=== PATIENT | female | born 1960 | race Caucasian/White ===

== ENCOUNTER → 2016-09-16 | Outpatient (CLI) | payer BC ==
--- NOTE | 2016-09-17 07:43 | BD ---
EXAMINATION TYPE: MG DEXA axial skeleton. DATE OF EXAM: 09/16/2016 4:14 PM COMPARISON: 03.29.2014 CLINICAL HISTORY: M89.9 DISORDER OF BONE Height: 68.5 Weight: 167 FRAX RISK QUESTIONS: Alcohol (3 or more units per day): NO Family History (Parent hip fracture): YES Glucocorticoids (More than 3mos): YES, FOR ASTHMA (Ex: prednisone, prednisolone, methylprednisolone, dexamethasone, and hydrocortisone). History of Fracture in Adulthood: NO Secondary Osteoporosis: NO 1. Type 1 Diabetes: NO 2. Hyperthyroidism: NO 3. Menopause before 45: HYST AT 44 4. Malnutrition: NO 5. Chronic liver disease: NO Rheumatoid Arthritis: NO Current Tobacco Use: NO RISK FACTORS HISTORY OF: Family History of Osteoporosis: YES, HER MOTHER, WITH BROKEN HIP Drink Alcohol: RARE Active: YES Diet low in dairy products/other sources of calcium: NO Postmenopausal woman: HYST AT 44 YRS, Adrenal Insufficiency: NO MEDICATIONS: Prednisone or other steroids: ASTHMA, VENTOLIN HFA DAILY, SINGULAIR How Lon YRS Thyroid Medications: STOPPED 3 YRS AGO Additional Medications: VIT D3, THRIVE, OTC VITAMINS AND MINERALS Additional History: ASTHMA, OSTEOARTHRITIS EXAM MEASUREMENTS: Bone mineral densitometry was performed using the [employer] System. Bone mineral density as measured about the Lumbar spine is: ----- L1-L4(G/cm2): 1.185 T Score Values are as follows: ----- L1: -0.4 ----- L2: 0.3 ----- L3: 0.2 ----- L4: -0.1 ----- L1-L4: 0.0 Bone mineral density has: Increased 1.4% since study of: 03.29.2014 Bone mineral density about the R hip (g/cm2): 0.899 Bone mineral density about the L hip (g/cm2): 0.887 T Score values are as follows: -----R Neck: -1.0 -----L Neck: -1.1 -----R Intertrochanter: -1.3 -----L Intertrochanter: -1.1 Bone mineral density has: Decreased -4.4% since study of: 03.29.2014 FRAX %'S: 12.7% FOR A MAJOR OSTEOPOROTIC FX AND 0.4% FOR A HIP FX......PROBABILITY OF FX IN 10 YRS TIME IMPRESSION: Osteopenia (T Score between -2.5 and -1 as noted by T score values There is slightly increased risk of fracture and the patient may be considered for treatment. Re-Screen 1-2 years. LEFT HIP MAJOR OSTEOPOROTIC FRACTURE RISK: 12.7% HIP FRACTURE RISK: 0.4% NOTE: T-SCORE=SD OF THE YOUNG ADULT MEAN.
--- NOTE | 2016-09-17 09:59 | MM ---
Reason for exam: screening (asymptomatic). Last mammogram was performed 2 years and 6 months ago. History: Patient history of other cancer. Retro-pectoral implants in both breasts, March 02, 2011. Took hormonal contraceptives for 5 years. Physical Findings: A clinical breast exam by your physician is recommended on an annual basis and results should be correlated with mammographic findings. MG Screening Mammo Implant/CAD Bilateral CC, MLO, and ID view(s) were taken. Prior study comparison: March 29, 2014, bilateral MG diagnostic mammo w CAD ENA. May 29, 2012, CAD bilateral diagnostic mammogram. There are scattered fibroglandular densities. No significant changes when compared with prior studies. ASSESSMENT: Benign, BI-RAD 2 RECOMMENDATION: Routine screening mammogram of both breasts in 1 year.
== END | disposition home or self-care (01) ==
LOC: RADMAMWWP 15:20
PROVIDERS: ATTEND Obstetrics & Gynecology
DX: Z12.31 Encounter for screening mammogram for malignant neoplasm of breast (principal); M85.80 Other specified disorders of bone density and structure, unspecified site; M89.9 Disorder of bone, unspecified
CPT/HCPCS: 77080; G0202

== ENCOUNTER 2016-12-10 10:48 | Day surgery (SDC) | payer BC ==
[2016-12-08 17:53] VITALS: BMI 23.2
[~2016-12-10 10:48] MED LIST: LACTATED RINGERS 1,000 ML IV SCH; LIDOCAINE 1% 20 ML VIAL (10MG/ML) FOR IV START INTRADERMA PRN
[2016-12-10 11:12] VITALS: RESP 18; TEMP 98
[2016-12-10] MEDS ORDERED: LACTATED RINGERS 1,000 ML IV ONE (11:12)
[2016-12-10] MEDS ORDERED: MIDAZOLAM 2 MG/2 ML VIAL ONE (11:19)
[2016-12-10] MEDS ORDERED: fentaNYL (PF) 50 MCG/ML 2 ML AMP ONE (11:19)
[2016-12-10] MEDS ORDERED: PROPOFOL 10 MG/ML 20 ML VIAL IV ONE (11:19)
[2016-12-10] MEDS ORDERED: ONDANSETRON 4 MG/2 ML VIAL ONE (11:19)
--- NOTE | 2016-12-10 11:23 | P.GSHP ---
History of Present Illness H&P Date: 12/10/16 Chief Complaint: Colon cancer screening Patient here today for colonoscopy. Last one was about 15 years ago. No bowel related complaints. No family history of colon cancer. Past Medical History Past Medical History: Asthma, Cancer, GERD/Reflux, Osteoarthritis (OA), Pneumonia, Thyroid Disorder Additional Past Medical History / Comment(s): hx pneumonia in past, hyperthyroid -no rx, hx anemia, skin cancer History of Any Multi-Drug Resistant Organisms: None Reported Past Surgical History: Hysterectomy, Orthopedic Surgery, Tonsillectomy Additional Past Surgical History / Comment(s): varicose vein rt leg, cancer removed from rt upper chest, left knee arthroscopy, amanda foot surgery Past Anesthesia/Blood Transfusion Reactions: No Reported Reaction Past Psychological History: Depression Smoking Status: Never smoker Past Alcohol Use History: Occasional Past Drug Use History: None Reported - Past Family History Mother Family Medical History: Cancer Additional Family Medical History / Comment(s): lung Medications and Allergies Home Medications Medication Instructions Recorded Confirmed Type Acetaminophen [Tylenol Extra 1,000 mg PO BID 12/08/16 12/08/16 History Strength] Albuterol Sulfate [Ventolin Hfa] 2 puff INHALATION DIRECTED PRN 12/08/1601/17 History Calcium Tab 1,000 mg PO DAILY 12/08/16 12/08/16 History Cholecalciferol [Vitamin D3] 2,000 unit PO DAILY 12/08/16 12/08/16 History Esomeprazole Magnesium [NexIUM] 40 mg PO AC-SUPPER 12/08/16 12/08/16 History Magnesium Oxide [Magnesium] 500 mg PO DAILY 12/08/16 12/08/16 History Montelukast [Singulair] 10 mg PO HS 12/08/16 12/10/16 History [place]-3 Fatty Acids/Fish Oil [Fish 1 each PO DAILY 12/08/16 12/08/16 History Oil 1,000 mg Capsule] Triple Flex 1 tab PO DAILY 12/08/16 12/08/16 History Turmeric Root Extract [Turmeric] 500 mg PO DAILY 12/08/16 12/08/16 History Allergies Allergy/AdvReac Type Severity Reaction Status Date / Time erythromycin base Allergy Nausea Verified 12/08/16 17:42 Surgical - Exam Vital Signs Temp Pulse Resp BP Pulse Ox 98.0 F 62 18 110/82 98 12/10/16 11:11 12/10/16 11:11 12/10/16 11:11 12/10/16 11:11 12/10/16 11:11 Physical exam: General: Well-developed, well-nourished HEENT: Normocephalic, sclerae nonicteric Abdomen: Nontender, nondistended Extremities: No edema Neuro: Alert and oriented Assessment and Plan (1) Colon cancer screening Narrative/Plan: Will proceed with colonoscopy at this time. Status: Acute
--- NOTE | 2016-12-10 11:37 | P.PCN ---
Date of Procedure: 12/10/16 Preoperative Diagnosis: Postoperative Diagnosis: Procedure(s) Performed: PREOPERATIVE DIAGNOSIS: Screening POSTOPERATIVE DIAGNOSIS: Normal exam PROCEDURE: Colonoscopy ANESTHESIA: MAC SURGEON: Brock Villarreal M.D. SPECIMENS: None ENDOSCOPIC PROCEDURE: The patient was placed on the endoscopy table in the left decubitus position. The Olympus colonoscope was inserted into the anus and passed under direct visualization to the base of the cecum. The appendiceal orifice was visualized. From that point the scope was slowly withdrawn inspecting all surfaces carefully. There were no neoplastic inflammatory or polypoid lesions throughout the cecum, ascending, transverse, descending, sigmoid and rectum. There was known diverticulosis noted throughout the colon. Digital rectal examination was normal. The patient was taken to the recovery room in stable condition per anesthesia guidelines. RECOMMENDATIONS: Increase fiber. Follow-up colonoscopy in 10 years. Implants: Indications for Procedure: Operative Findings: Description of Procedure:
[2016-12-10 12:06] VITALS: PULSE 56
[2016-12-10 12:22] VITALS: BP 104/69
== END 2016-12-10 12:30 | disposition home or self-care (01) ==
LOC: ORWHC2ENDO 10:48
PROVIDERS: ATTEND Surgery
DX: Z12.11 Encounter for screening for malignant neoplasm of colon (principal); K57.30 Diverticulosis of large intestine without perforation or abscess without bleeding; J45.909 Unspecified asthma, uncomplicated; K21.9 Gastro-esophageal reflux disease without esophagitis; M19.90 Unspecified osteoarthritis, unspecified site; E05.90 Thyrotoxicosis, unspecified without thyrotoxic crisis or storm; F32.9 Major depressive disorder, single episode, unspecified; Z79.899 Other long term (current) drug therapy; Z88.1 Allergy status to other antibiotic agents
CPT/HCPCS: J2250; J2405; J3010; J2704; G0121

== ENCOUNTER 2017-11-05 11:13 | Emergency (ER) | payer BC, OTHER ==
--- NOTE | 2017-11-05 11:58 | ED ---
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 She states she was on the floors apparently tripped over a cord falling down the left side hitting her face and cheek. She does make some swelling some pain locally to this area. Patient states she does not believe that she lost consciousness. Patient states that she does have some neck pain and some mild back pain. Patient does admit to a headache that is beginning. Patient denies any other complaints or symptoms at this time. Patient denies any recent fever, chills, shortness of breath, chest pain, abdominal pain, nausea or vomiting, numbness or tingling, visual changes, or any other complaints. - Related Data Home Medications Medication Instructions Recorded Confirmed Acetaminophen [Tylenol Extra 1,000 mg PO BID 12/08/16 12/08/16 Strength] Albuterol Sulfate [Ventolin Hfa] 2 puff INHALATION DIRECTED PRN 12/08/1601/17 Calcium Tab 1,000 mg PO DAILY 12/08/16 12/08/16 Cholecalciferol [Vitamin D3] 2,000 unit PO DAILY 12/08/16 12/08/16 Esomeprazole Magnesium [NexIUM] 40 mg PO AC-SUPPER 12/08/16 12/08/16 Magnesium Oxide [Magnesium] 500 mg PO DAILY 12/08/16 12/08/16 Montelukast [Singulair] 10 mg PO HS 12/08/16 12/10/16 [place]-3 Fatty Acids/Fish Oil [Fish 1 each PO DAILY 12/08/16 12/08/16 Oil 1,000 mg Capsule] Triple Flex 1 tab PO DAILY 12/08/16 12/08/16 Turmeric Root Extract [Turmeric] 500 mg PO DAILY 12/08/16 12/08/16 Allergies Allergy/AdvReac Type Severity Reaction Status Date / Time erythromycin base Allergy Nausea Verified 11/05/17 11:25 prednisone Allergy Unknown Verified 11/05/17 11:25 Review of Systems ROS Statement: Those systems with pertinent positive or pertinent negative responses have been documented in the HPI. ROS Other: All systems not noted in ROS Statement are negative. Past Medical History Past Medical History: Asthma, Cancer, GERD/Reflux, Osteoarthritis (OA), Pneumonia, Thyroid Disorder Additional Past Medical History / Comment(s): hyperthyroid-no rx, skin cancer History of Any Multi-Drug Resistant Organisms: None Reported Past Surgical History: Hysterectomy, Orthopedic Surgery, Tonsillectomy Additional Past Surgical History / Comment(s): varicose vein rt leg, cancer removed from rt upper chest, left knee arthroscopy, amanda foot surgery Past Anesthesia/Blood Transfusion Reactions: No Reported Reaction Past Psychological History: Depression Smoking Status: Never smoker Past Alcohol Use History: Occasional Past Drug Use History: None Reported - Past Family History Mother Family Medical History: Cancer Additional Family Medical History / Comment(s): lung General Exam - General Exam Comments Initial Comments: General: The patient is awake and alert, in no distress, and does not appear acutely ill. Eye: Pupils are equal, round and reactive to light, extra-ocular movements are intact. No nystagmus. There is normal conjunctiva bilaterally. No signs of icterus. Ears, nose, mouth and throat: There are moist mucous membranes and no oral lesions. Neck: The neck is supple, there is no tenderness or JVD. Cardiovascular: There is a regular rate and rhythm. No murmur, rub or gallop is appreciated. Respiratory: Lungs are clear to auscultation, respirations are non-labored, breath sounds are equal. No wheezes, stridor, rales, or rhonchi. Musculoskeletal: Normal ROM, no tenderness midline or cervical spine. Mild tenderness to the right side of the lower cervical spine. No step-off or deformity. Strength 5/5. Sensation intact. Pulses equal bilaterally 2+. Neurological: A&O x 3. CN II-XII intact, There are no obvious motor or sensory deficits. Coordination appears grossly intact. Speech is normal. Skin: Patient also some mild swelling to left cheek area. Tender over the zygomatic arch Psychiatric: Cooperative, appropriate mood & affect, normal judgment. Limitations: no limitations Course Vital Signs 11/05/17 11:22 Temperature 97.7 F Pulse Rate 75 Respiratory 18 Rate Blood Pressure 140/73 O2 Sat by Pulse 98 Oximetry Medical Decision Making - Medical Decision Making Patient's CT of the head, neck, facial bones reviewed and are negative for any acute abnormalities. Results were discussed with the patient. At this time patient doing well. Denies any complaints. Will be discharged home. Advised to continue IV Profen for pain. Disposition Clinical Impression: Fall, Facial contusion Disposition: HOME SELF-CARE Condition: Good Instructions: Concussion (ED) Additional Instructions: Please use medication as discussed. Please follow-up with family doctor in the next 2 days of symptoms have not improved. Please return to emergency room if the symptoms increase or worsen or for any other concerns. Is patient prescribed a controlled substance at d/c from ED?: No Referrals: Didi Alas MD [Primary Care Provider] - 1-2 days Time of Disposition: 13:02
--- NOTE | 2017-11-05 12:42 | CT ---
EXAMINATION TYPE: CT facial bones wo con DATE OF EXAM: 11/05/2017 COMPARISON: NONE HISTORY: Tripped and fell, Lt cheek laceration CT DLP: 1830.3 (brain, cervical, facial) mGycm Automated exposure control for dose reduction was used. TECHNIQUE: There is some soft tissue edema or bruising involving the left cheek. The zygomatic arches are intact. The pterygoid plates are intact. The monreal of the orbits and maxilla ry sinuses are intact. No nasal fracture is seen. Visualized portions of the paranasal sinuses and mastoids are clear. Visualized portions of the brain are normal. IMPRESSION: 1. SOFT TISSUE EDEMA OR BRUISING. 2. NO ACUTE OSSEOUS LESION.
--- NOTE | 2017-11-05 12:46 | CT ---
EXAMINATION TYPE: CT brain cspine wo con DATE OF EXAM: 11/05/2017 COMPARISON: NONE HISTORY: tripped and fell, Lt cheek laceration CT DLP: 1830.3 (brain, cervical, facial) mGycm Automated exposure control for dose reduction was used. TECHNIQUE: CT scan of the head and cervical spine are performed without contrast. FINDINGS: BRAIN: Central structures are midline. There is no evidence of hydrocephalus. No acute focal lesion, mass effect or midline shift is seen a do not see evidence of intracranial blood. Visualized portions of the paranasal sinuses and mastoids are clear. The bony calvarium is intact. IMPRESSION: NORMAL CT SCAN OF THE BRAIN. CERVICAL SPINE: There are mild emphysematous changes within the lungs. Prevertebral soft tissues are unremarkable. There is a minimal retrograde listhesis of C5 on C6. Alignment is otherwise maintained. Atlantoaxial relationships are normal. There is degenerative disc disease, hypertrophic spondylosis and uncovertebral joint disease at C5-6. There is also mild degenerative change present at C4-5. No definite protrusion is seen. No fractures identified. IMPRESSION: 1. NO ACUTE OSSEOUS LESION. 2. MILD DEGENERATIVE CHANGE.
[2017-11-05 13:17] VITALS: BP 120/71; PULSE 73; RESP 16; TEMP 97
== END 2017-11-05 13:16 | disposition home or self-care (01) ==
LOC: EC 11:13
DX: S00.83XA Contusion of other part of head, initial encounter (principal); J45.909 Unspecified asthma, uncomplicated; K21.9 Gastro-esophageal reflux disease without esophagitis; M19.90 Unspecified osteoarthritis, unspecified site; Z85.828 Personal history of other malignant neoplasm of skin; Z79.899 Other long term (current) drug therapy; Z88.1 Allergy status to other antibiotic agents; Z88.8 Allergy status to other drugs, medicaments and biological substances; W01.10XA Fall on same level from slipping, tripping and stumbling with subsequent striking against unspecified object, initial encounter; Y99.0 Civilian activity done for income or pay
CPT/HCPCS: 70450; 70486; 72125; 99283

== ENCOUNTER → 2017-11-10 | Outpatient (CLI) | payer BC ==
--- NOTE | 2017-11-10 09:37 | XR ---
EXAMINATION TYPE: XR knee standing AP BILAT DATE OF EXAM: 11/10/2017 CLINICAL HISTORY: DJD bilateral knees TECHNIQUE: Weightbearing 2 views of the bilateral knees are obtained. COMPARISON: None. FINDINGS: There is no acute fracture/dislocation evident in either knee. There is advanced joint spa ce loss with mild to moderate spurring right patellofemoral compartment. Increased soft tissue densit y at this level is consistent with moderate size suprapatellar joint effusion. There is more moderate joint space loss and spurring left patellofemoral compartment. There is mild to moderate spurring and joint space loss medial tibiofemoral compartments bilaterally with symmetric appearance. There is mild joint space loss and spurring lateral tibiofemoral compartme nts bilaterally. Surgical clips from venous harvesting procedure medially in the right knee are noted . IMPRESSION: There are degenerative changes in both knees, greatest right patellofemoral compartment.
--- NOTE | 2017-11-11 10:05 | MR ---
EXAMINATION TYPE: MR knee LT wo con DATE OF EXAM: 11/10/2017 COMPARISON: X-ray 11/10/2017 HISTORY: Bilateral Torn Meniscus TECHNIQUE: Multiplanar, multisequence imaging of the left knee is performed without IV contrast. FINDINGS: MEDIAL MENISCUS: Linear signal involving the posterior horn and body of the medial meniscus tear. LATERAL MENISCUS: Linear signal involving the posterior horn and body of the lateral meniscus compati ble with simple linear tear CRUCIATE LIGAMENTS: The anterior and posterior cruciate ligaments are intact and unremarkable. COLLATERAL LIGAMENTS: The medial collateral ligament and lateral collateral ligament complex are inta ct and unremarkable. EXTENSOR MECHANISM: Visualized quadriceps and patellar tendons are intact. EFFUSION: Trace amount of fluid in the suprapatellar bursa. Rounded area of intermediate signal may represent a small loose body. POPLITEAL CYST: No popliteal/go cyst. TRICOMPARTMENT SPACES: There is a narrowing of the medial compartment of the knee joint and marked na rrowing the patellofemoral joint with hypertrophic spurs involving both compartments. Complete loss o f cartilage involving the lateral patellar facet is noted. Small loose body within the suprapatellar bursa is noted. There is grade III chondromalacia involving the lateral femoral articular cartilage. BONE MARROW SIGNAL: Post arthritic and reactive marrow changes involving the patella, femur and tibia . Benign cystic changes involving the head of the fibula. IMPRESSION: 1. Significant arthropathy likely in the basis of osteoarthritis with chondromalacia as discussed abo ve. 2. Simple linear tears involving the posterior horn and body of the medial and lateral meniscus.
--- NOTE | 2017-11-11 10:39 | MR ---
EXAMINATION TYPE: MR knee RT wo con DATE OF EXAM: 11/10/2017 COMPARISON: NONE HISTORY: Bilateral Torn Meniscus TECHNIQUE: Multiplanar, multisequence imaging of the right knee is performed without IV contrast. FINDINGS: MEDIAL MENISCUS: Linear signal in the posterior horn of the medial meniscus noted compatible with tea r.. LATERAL MENISCUS: Signal within the posterior horn the lateral meniscus is most typical mucoid degene ration. CRUCIATE LIGAMENTS: The anterior and posterior cruciate ligaments are intact and unremarkable. COLLATERAL LIGAMENTS: The medial collateral ligament and lateral collateral ligament complex are inta ct and unremarkable. EXTENSOR MECHANISM: Visualized quadriceps and patellar tendons are intact. EFFUSION: Small amount of fluid in the suprapatellar bursa. POPLITEAL CYST: No popliteal/go cyst. TRICOMPARTMENT SPACES: There is narrowing of the medial compartment of the knee joint in severe narro wing of the patellofemoral joint. Hypertrophic changes are noted. Grade II chondromalacia involving the articular medial and lateral femoral cartilage and complete los s of the lateral patellar facet cartilage secondary to severe arthropathy. BONE MARROW SIGNAL: Marrow signal within the patella anterior femur likely reactive secondary to post arthritic changes. Benign cystic changes in the posterior central tibia. OTHER: Soft tissue varicosities noted. IMPRESSION: 1. Severe arthritic change. Osteoarthritis favored over depositional arthropathy with most marked fin dings involving the patellofemoral joint. Chondromalacia as discussed above. 2. Simple linear tear posterior horn medial meniscus 3. Nonspecific signal posterior horn lateral meniscus. Mucoid degeneration favored. 4. Correlate for medial plica syndrome.
== END | disposition home or self-care (01) ==
LOC: RADMRIMAIN 06:08
DX: R93.7 Abnormal findings on diagnostic imaging of other parts of musculoskeletal system (principal); M17.0 Bilateral primary osteoarthritis of knee; S83.206A Unspecified tear of unspecified meniscus, current injury, right knee, initial encounter; S83.207A Unspecified tear of unspecified meniscus, current injury, left knee, initial encounter
CPT/HCPCS: 73565

== ENCOUNTER → 2019-05-09 | Outpatient (CLI) | payer BC ==
--- NOTE | 2019-05-09 14:39 | BD ---
EXAMINATION TYPE: Axial Bone Density DATE OF EXAM: 05/09/2019 COMPARISON: 09/16/2016 CLINICAL HISTORY: M 89.9, N 95.1 Height: Weight: 176.1 FRAX RISK QUESTIONS: Alcohol (3 or more units per day): no Family History (Parent hip fracture): yes -mother Glucocorticoids (More than 3mos): no (Ex: prednisone, prednisolone, methylprednisolone, dexamethasone, and hydrocortisone). History of Fracture in Adulthood: no Secondary Osteoporosis: 1. Type 1 Diabetes: no 2. Hyperthyroidism: no 3. Menopause before 45: yes 4. Malnutrition: no 5. Chronic liver disease: no Rheumatoid Arthritis: no Current Tobacco Use: no RISK FACTORS HISTORY OF: Family History of Osteoporosis: yes Active: yes Diet low in dairy products/other sources of calcium: no Postmenopausal woman: yes age 44 Lost more than 2 inches in height since high school: no MEDICATIONS: montelukast Additional History: EXAM MEASUREMENTS: Bone mineral densitometry was performed using the [employer] System. Bone mineral density as measured about the Lumbar spine is: ----- L1-L4(G/cm2): 1.091 T Score Values are as follows: ----- L2: -0.7 ----- L3: -0.5 ----- L4: -1.2 ----- L1-L4: -0.7 Bone mineral density has: decreased -8.8 % since study of: 09.16.2016 Bone mineral density about the R hip (g/cm2): 0.827 Bone mineral density about the L hip (g/cm2): 0.844 T Score values are as follows: -----R Neck: -1.5 -----L Neck: -1.4 -----R Total: -1.4 -----L Total: -1.3 Bone mineral density has: decreased -6.4 % since study of: 09.16.2016 IMPRESSION: Osteopenia (T Score between -2.5 and -1). There is slightly increased risk of fracture and the patient may be considered for treatment. Re-Screen 2-5 years. NOTE: T-SCORE=SD OF THE YOUNG ADULT MEAN.
--- NOTE | 2019-05-11 09:39 | MM ---
Reason for exam: screening (asymptomatic). Last mammogram was performed 2 years and 8 months ago. History: Patient history of other cancer. Retro-pectoral implants in both breasts, March 02, 2011. Took hormonal contraceptives for 5 years. Physical Findings: A clinical breast exam by your physician is recommended on an annual basis and results should be correlated with mammographic findings. MG 3D Screen Mammo Imp/Cad Bilateral CC and MLO view(s) were taken. Prior study comparison: September 16, 2016, bilateral MG screening mammo implant/CAD. March 29, 2014, bilateral MG diagnostic mammo w CAD ENA. The breast tissue is heterogeneously dense. This may lower the sensitivity of mammography. There is no discrete abnormality. Bilateral subpectoral implants. ASSESSMENT: Benign, BI-RAD 2 RECOMMENDATION: Routine screening mammogram of both breasts in 1 year.
== END | disposition home or self-care (01) ==
LOC: RADMAMWWP 13:36
PROVIDERS: ATTEND Obstetrics & Gynecology
DX: Z12.31 Encounter for screening mammogram for malignant neoplasm of breast (principal); M85.80 Other specified disorders of bone density and structure, unspecified site; Z98.82 Breast implant status
CPT/HCPCS: 77063; 77067; 77080

== ENCOUNTER → 2019-05-10 | Outpatient (CLI) | payer BC ==
[2019-05-10 07:48] LABS: Appearance,Urine Cloudy (Clear); Bilirubin,Urine Negative (Negative); Blood,Urine Negative (Negative); Color,Urine Yellow; Glucose,Urine (UA) Negative (Negative); Ketones,Urine Negative (Negative); Leukocyte Esterase,Urine Large (Negative); Mucus,Urine Rare /hpf; Nitrite,Urine Negative (Negative); Protein,Urine Negative (Negative); Specific Gravity,Urine 1.018 (1.001-1.035); Squamous Epithelial Cell,Urine 12 /hpf (0-4); Urobilinogen,Urine <2.0 mg/dL (<2.0); WBC,Urine 3 /hpf (0-5)
[2019-05-10 08:03] LABS: Basophils # (A) 0.1 k/uL (0-0.2); Basophils % (A) 1 %; Eosinophils # (A) 0.1 k/uL (0-0.7); Eosinophils % (A) 3 %; HGB 13.1 gm/dL (11.4-16.0); Lymphocytes # (A) 1.6 k/uL (1.0-4.8); Lymphocytes % (A) 36 %; MCH 29.1 pg (25.0-35.0); MCHC 33.5 g/dL (31.0-37.0); MCV 86.8 fL (80.0-100.0); Mean Platelet Volume 5.8; Monocytes # (A) 0.3 k/uL (0-1.0); Monocytes % (A) 7 %; Neutrophils # (A) 2.3 k/uL (1.3-7.7); Neutrophils % (A) 50 %; Platelet Count 236 k/uL (150-450); RBC 4.49 m/uL (3.80-5.40); WBC 4.6 k/uL (3.8-10.6)
[2019-05-10 12:04] LABS: T4, Free (Free Thyroxine) 1.4 ng/dL (0.80-1.80)
[2019-05-10 15:40] LABS: African American GFR (CKD) 93.5 (60.0-200.0); Albumin 4.4 g/dL (3.80-4.90); Albumin/Globulin Ratio 2.32 (1.60-3.17); Anion Gap 7.5 mmol/L (4.00-12.00); BUN/Creat Ratio 22.5 Ratio (12.00-20.00); Calcium 9.6 mg/dL (8.7-10.3); Carbon Dioxide 25.5 mmol/L (21.6-31.8); Chol/HDL Ratio 2.7; Globulin 1.9 g/dL (1.6-3.3); LDL Cholesterol,Calculated 110.6 mg/dL (0.0-131.0); Potassium 4.7 mmol/L (3.5-5.5); Total Bilirubin 0.6 mg/dL (0.3-1.2); Total Protein 6.3 g/dL (6.2-8.2); VLDL Calculation 10.4 mg/dL (5.00-40.00)
== END | disposition home or self-care (01) ==
LOC: LABWHC1 06:45
PROVIDERS: ATTEND Internal Medicine Critical Care Medicine
DX: Z00.00 Encounter for general adult medical examination without abnormal findings (principal)
CPT/HCPCS: 36415; 80053; 80061; 81001; 82306; 84439; 84443; 85025

== ENCOUNTER 2019-07-04 09:54 | Emergency (ER) | payer BC, OTHER ==
[2019-07-04 10:00] VITALS: BP 144/80; PULSE 63; RESP 18; TEMP 98
--- NOTE | 2019-07-04 10:35 | ED ---
General Adult HPI - General Chief complaint: Extremity Injury, Upper Stated complaint: IHS - right arm injury Time Seen by Provider: 07/04/19 10:05 Source: patient, RN notes reviewed, old records reviewed Mode of arrival: ambulatory Limitations: no limitations - History of Present Illness Initial comments: 59-year-old female patient with a small history of prior orthopedic surgery presents to the chief complaint of right shoulder / triceps strain. Patient reports that initially on 06/26 she strained her triceps region wall reaching awkwardly to help intubate a patient. Patient is a respiratory therapist. 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 Patient force of this causes her discomfort. Reports that she is able to range it, however she has discomfort while doing flexion and extension motions. Denies any other complaints at this time. Reports that she has full sensation. Systemic: Pt denies fatigue, fever/chills, rash. Pt denies weakness, night sweats, weight loss. Neuro: Pt denies headache, visual disturbances, syncope or pre-syncope. HEENT: Pt denies ocular discharge or irritation, otalgia, rhinorrhea, pharyngitis or notable lymphadenopathy. Cardiopulmonary: Pt denies chest pain, SOB, heart palpitations, dyspnea on exertion. Abdominal/GI: Pt denies abdominal pain, n/v/d. : Pt denies dysuria, burning w/ urination, frequency/urgency. Denies new onset urinary or bowel incontinence. MSK: Pt denies myalgia, loss of strength or function in extremities. Neuro: Pt denies new onset weakness, paresthesias. - Related Data Home Medications Medication Instructions Recorded Confirmed Acetaminophen [Tylenol Extra 1,000 mg PO BID 12/08/16 12/08/16 Strength] Albuterol Sulfate [Ventolin Hfa] 2 puff INHALATION DIRECTED PRN 12/08/16 12/08/16 Calcium Tab 1,000 mg PO DAILY 12/08/16 12/08/16 Cholecalciferol [Vitamin D3] 2,000 unit PO DAILY 12/08/16 12/08/16 Esomeprazole Magnesium [NexIUM] 40 mg PO AC-SUPPER 12/08/16 12/08/16 Magnesium Oxide [Magnesium] 500 mg PO DAILY 12/08/16 12/08/16 Montelukast [Singulair] 10 mg PO HS 12/08/16 12/10/16 [place]-3 Fatty Acids/Fish Oil [Fish 1 each PO DAILY 12/08/16 12/08/16 Oil 1,000 mg Capsule] Triple Flex 1 tab PO DAILY 12/08/16 12/08/16 Turmeric Root Extract [Turmeric] 500 mg PO DAILY 12/08/16 12/08/16 Allergies Allergy/AdvReac Type Severity Reaction Status Date / Time erythromycin base Allergy Nausea Verified 07/04/19 10:00 prednisone Allergy Unknown Verified 07/04/19 10:00 Review of Systems ROS Statement: Those systems with pertinent positive or pertinent negative responses have been documented in the HPI. ROS Other: All systems not noted in ROS Statement are negative. Past Medical History Past Medical History: Asthma, Cancer, GERD/Reflux, Osteoarthritis (OA), Pneumonia, Thyroid Disorder Additional Past Medical History / Comment(s): hyperthyroid-no rx, skin cancer History of Any Multi-Drug Resistant Organisms: None Reported Past Surgical History: Hysterectomy, Orthopedic Surgery, Tonsillectomy Additional Past Surgical History / Comment(s): varicose vein rt leg, cancer removed from rt upper chest, left knee arthroscopy, amanda foot surgery Past Anesthesia/Blood Transfusion Reactions: No Reported Reaction Past Psychological History: Depression Smoking Status: Never smoker Past Alcohol Use History: Occasional Past Drug Use History: None Reported - Past Family History Mother Family Medical History: Cancer Additional Family Medical History / Comment(s): lung General Exam - General Exam Comments Initial Comments: Constitutional: NAD, AOX3, Pt has pleasant affect. HEENT: NC/AT, trachea midline, neck supple, no lymphadenopathy. Posterior pharynx non erythematous, without exudates. External ears appear normal, without discharge. Mucous membranes moist. Eyes PERRLA, EOM intact. There is no scleral icterus. No pallor noted. Cardiopulmonary: RRR, no murmurs, rubs or gallops, no JVD noted. Lungs CTAB in anterior and posterior galloway. No peripheral edema. Neuro: CN II-XII grossly intact. No nuchal rigidity. No raccon eyes, no loaiza sign, no hemotympanum. No cervical spinal tenderness. MSK: Active Abduction of right upper extremity slightly limited secondary to discomfort. Flexion and extension intact. Posterior triceps region mildly tender to palpation. No skin changes. Neurovascularly intact. No posterior calf tenderness bilaterally, homans sign negative bilaterally. Posterior tibialis and radial pulse +2 bilaterally. Sensation intact in upper and lower extremities. Full active ROM in lower extremities, 5/5 stregnth. Limitations: no limitations Course Vital Signs 07/04/19 09:58 Temperature 98.0 F Pulse Rate 63 Respiratory 18 Rate Blood Pressure 144/80 O2 Sat by Pulse 98 Oximetry Medical Decision Making - Medical Decision Making 59-year-old female patient with a small history of prior orthopedic surgery presents to the chief complaint of right shoulder / triceps strain. Patient reports that initially on 06/26 she strained her triceps region wall reaching awkwardly to help intubate a patient. Patient is a respiratory therapist. 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 Patient force of this causes her discomfort. Reports that she is able to range it, however she has discomfort while doing flexion and extension motions. Denies any other complaints at this time. Reports that she has full sensation. Physical exam displayed: Active Adduction of right upper extremity limited secondary to discomfort. Flexion and extension intact. Posterior triceps region mildly tender to palpation. No skin changes. Neurovascularly intact. Patient declines any imaging or any further intervention. Patient reports that she she wants this documented and to return to work. Reports that she is following up with her orthopedist tomorrow. Return to ER if condition worsens anyway. Case discussed with Dr. Rangel. Disposition Clinical Impression: Triceps strain Disposition: HOME SELF-CARE Condition: Stable Instructions (If sedation given, give patient instructions): Musculoskeletal Pain (ED) Additional Instructions: Follow-up with orthopedist tomorrow as scheduled. Follow-up with primary care provider in 1-2 days. Return to ER if condition worsens in any way. May work a s tolerated. If you feel that your injury is impeding your ability to work or causing discomfort please follow up with occupational health. Is patient prescribed a controlled substance at d/c from ED?: No Referrals: Didi Alas MD [Primary Care Provider] - 1-2 days
== END 2019-07-04 10:40 | disposition home or self-care (01) ==
LOC: EC 09:54
DX: S46.311A Strain of muscle, fascia and tendon of triceps, right arm, initial encounter (principal); J45.909 Unspecified asthma, uncomplicated; K21.9 Gastro-esophageal reflux disease without esophagitis; M19.90 Unspecified osteoarthritis, unspecified site; Z88.1 Allergy status to other antibiotic agents; Z88.8 Allergy status to other drugs, medicaments and biological substances; Z79.891 Long term (current) use of opiate analgesic; Z79.899 Other long term (current) drug therapy; Z85.828 Personal history of other malignant neoplasm of skin; Z87.01 Personal history of pneumonia (recurrent); Z98.890 Other specified postprocedural states; X50.1XXA Overexertion from prolonged static or awkward postures, initial encounter; Y93.89 Activity, other specified; Y92.69 Other specified industrial and construction area as the place of occurrence of the external cause; Y99.0 Civilian activity done for income or pay
CPT/HCPCS: 99283

== ENCOUNTER → 2019-07-06 | Outpatient (CLI) | payer BC, OTHER ==
--- NOTE | 2019-07-06 10:30 | XR ---
EXAMINATION TYPE: XR shoulder complete 3 views RT, XR humerus 2 views RT DATE OF EXAM: 07/06/2019 COMPARISON: NONE HISTORY: 59-year-old female upper arm injury and pain FINDINGS: Right shoulder: Mild to moderate degenerative joint space narrowing with marginal spurring at the acromioclavicular j oint. Hypertrophy is present. The joint remains congruent. Subacromial space is preserved. No acute f racture, subluxation, or dislocation. Right humerus: No acute fracture identified. IMPRESSION: Right shoulder and humerus: Moderate AC joint OA. No acute osseous abnormality seen.
== END | disposition home or self-care (01) ==
LOC: RADXRMAIN 10:02
PROVIDERS: ATTEND Emergency Medicine
DX: M19.011 Primary osteoarthritis, right shoulder (principal)

== ENCOUNTER → 2020-04-01 | Outpatient (CLI) | payer OTHER ==
[2020-04-01 08:20] LABS: Basophils % (A) 1 %; Eosinophils # (A) 0.3 k/uL (0-0.7); Eosinophils % (A) 4 %; HCT 42.3 % (34.0-46.0); HGB 13.9 gm/dL (11.4-16.0); Lymphocytes # (A) 2.8 k/uL (1.0-4.8); Lymphocytes % (A) 36 %; MCH 28.6 pg (25.0-35.0); MCHC 32.9 g/dL (31.0-37.0); MCV 86.9 fL (80.0-100.0); Mean Platelet Volume 7.1; Monocytes # (A) 0.5 k/uL (0-1.0); Monocytes % (A) 6 %; Neutrophils % (A) 52 %; Platelet Count 231 k/uL (150-450); RBC 4.86 m/uL (3.80-5.40); RDW 13.5 % (11.5-15.5); WBC 7.7 k/uL (3.8-10.6)
[2020-04-01 08:27] LABS: Potassium 4.3 mmol/L (3.5-5.1)
== END | disposition home or self-care (01) ==
LOC: LABPAT 06:59
PROVIDERS: ATTEND Orthopaedic Surgery
DX: Z01.818 Encounter for other preprocedural examination (principal); M75.42 Impingement syndrome of left shoulder
CPT/HCPCS: 36415; 80051; 85025; 93005

== ENCOUNTER 2020-04-04 06:18 | Day surgery (SDC) | payer BC, OTHER ==
[2020-04-02 11:19] VITALS: BMI 24.3
--- NOTE | 2020-04-03 10:20 | HP ---
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 She was pushing a flow meter when she felt a pop in her shoulder. She has had pain ever since. She is having a difficult time with overhead activity and at night. She has tried therapy in addition to medications and injection without significant relief. PAST MEDICAL HISTORY: Negative. PAST SURGICAL HISTORY: Negative. CURRENT MEDICATIONS: Ibuprofen and Singulair. ALLERGIES: ERYTHROMYCIN and sensitivity to PREDNISONE. FAMILY HISTORY: Significant for cancer. SOCIAL HISTORY: Negative for current tobacco or alcohol use. 16 POINT REVIEW OF SYSTEMS: Otherwise reviewed and is noncontributory. PHYSICAL EXAMINATION: On examination, the patient is approximately 5 foot 10, 170 pounds of mesomorphic habitus. HEENT exam is nonfocal. NECK: Supple. Examination of her right shoulder, she is tender about the anterior subacromial space. She has moderate subacromial crepitus. Active range of motion right shoulder. Forward elevation 150 degrees, external rotation with arms at side 55 degrees, internal rotation to T11. Motor strength is 5-/5 for abduction, external rotation. Impingement test, NEER test, and Speed tests are positive. Her distal neurovascular exam appears intact in the right upper extremity. MRI report right shoulder from 09/02/2019 shows evidence of a supraspinatus tear without significant retraction. IMPRESSION: Right rotator cuff tear-symptomatic. RECOMMENDATION: I talked to the patient at length regarding her condition and treatment options. At this point, she has tried extensive conservative measures without resolution of her symptoms. After thorough discussion, she opts to proceed with surgery. Will plan to proceed with arthroscopic evaluation with probable subacromial decompression and rotator cuff repair. We will likely perform that as an outpatient procedure. The risks and benefits were discussed at length in layman's terms. MMODL / IJN: [id number] /
[~2020-04-04 06:18] MED LIST changes: +DEXAMETHASONE SOD PHOSPHATE 10 MG/ML 1 ML VIAL IV ONE; +HYDROmorphone 0.5 MG/0.5 ML SYRINGE IVP PRN; -LACTATED RINGERS 1,000 ML IV SCH; +LIDOCAINE 1% (10MG/ML) FOR IV START INTRADERMA PRN; -LIDOCAINE 1% 20 ML VIAL (10MG/ML) FOR IV START INTRADERMA PRN; +ONDANSETRON 4 MG/2 ML VIAL IVP ONE; +ONDANSETRON 4 MG/2 ML VIAL IVP PRN
[2020-04-04] MEDS: LACTATED RINGERS 1,000 ML IV SCH ×2 (07:02→07:44)
[2020-04-04] MEDS ORDERED: MIDAZOLAM 2 MG/2 ML VIAL IVP ONE (07:08)
[2020-04-04] MEDS ORDERED: fentaNYL (PF) 50 MCG/ML 2 ML AMP ONE (07:44)
[2020-04-04] MEDS ORDERED: LIDOCAINE 1% INJ 10MG/ML (20 ML MDV) ONE (07:44)
[2020-04-04] MEDS ORDERED: ePHEDrine SULFATE/0.9% NACL/PF 50 MG/5 ML SYRINGE IV ONE (07:44)
[2020-04-04] MEDS ORDERED: ROPIVACAINE 5 MG/ML 30 ML VIAL ONE (07:44)
[2020-04-04] MEDS ORDERED: SUCCINYLCHOLINE CHLORIDE 100 MG/5 ML SYR IV ONE (07:44)
[2020-04-04] MEDS ORDERED: PROPOFOL 10 MG/ML 20 ML VIAL IV ONE (07:44)
[2020-04-04] MEDS ORDERED: MIDAZOLAM 2 MG/2 ML VIAL ONE (07:44)
[2020-04-04] MEDS ORDERED: KETOROLAC 15 MG/ML 1 ML VIAL ONE (07:44)
[2020-04-04] MEDS ORDERED: LACTATED RINGERS 1,000 ML IV ONE (08:34)
--- NOTE | 2020-04-04 09:24 | P.OP ---
Date of Procedure: 04/04/20 Preoperative Diagnosis: Symptomatic right rotator cuff tear Postoperative Diagnosis: Same Procedure(s) Performed: Right shoulder arthroscopy/subacromial decompression/rotator cuff repair Implants: Arthrex 4.75 mm swivel lock anchor 4 Anesthesia: gia PADRON Surgeon: Fracisco Garcia Tool Grinder Operator External #1: Theo Espinoza Estimated Blood Loss (ml): 10 Pathology: none sent Condition: stable Disposition: PACU Indications for Procedure: The patient is a 60-year-old female presents after a work injury with persistent symptoms secondary to a right rotator cuff tear. A discussion of the risks and benefits of operative intervention versus continued conservative measures patient. She opted to proceed with surgery. Operative risks to include infection, neurovascular injury, development of blood clots, possible tendon rerupture, possible postoperative stiffness and need for subsequent procedures was discussed. Informed consent was obtained. Operative Findings: As below Description of Procedure: The patient was brought to the operating room, and after induction of general anesthesia was placed in a beachchair position. A preoperative interscalene block was placed for postoperative analgesia. I examined the right shoulder. There was no gross block to passive motion or gross glenohumeral instability. The right upper extremity was prepped and draped in normal fashion. The bony outlines the acromion, distal clavicle, and coracoid process were outlined with a skin marker. The glenohumeral joint was inflated with 50 mL of saline utilizing a spinal needle from posterior approach. A posterior portal was made through a 5 mm skin incision 1 cm medial and inferior to the posterior lateral border time. A blunt trocar was used to easily into the joint. Diagnostic a rthroscopy was performed. An anterior portal was made just lateral to the coracoid process entering the joint above the subscapularis tendon. The subscapularis tendon appeared to be intact. Anterior labrum was intact. The inferior recess was inspected. The posterior labrum was intact. The biceps and its anchor were intact. On inspection the rotator cuff, a full-thickness 4 cm tear involving the supraspinatus and a portion the infraspinatus was noted. A lateral portal was made 2 centimeters inferior to the anterior lateral border of the acromion. The soft tissue on the undersurface of the acromion was debrided with a motorized shaver and electrocautery clearly defining the anterior medial and lateral borders as well as the distal clavicle. An anterior inferior acromioplasty was performed with a motorized shae starting anterolateral, then extending this posteriorly, then extending this medially. I converted to a flat acromion and this was verified in the posterior and lateral viewing portals. The greater tuberosity was lightly decorticating with a shaver down to a bleeding bony surface. An accessory superior lateral portals made just off the lateral edge of the acromion for anchor placement. 2 anchors were then placed just off the articular surface with the appropriate starting awl. 4.75 mm anchors preloaded with #2 fiber tape were placed. Good purchase was ob tained. These fiber tapes were then passed the rotator cuff with a scorpion suture passer. A lateral row was created crisscrossing these tapes. 4.75 mm swivel lock anchors x2 were placed laterally. Good purchase was obtained. Final arthroscopic view showed adequate compression at the footprint. The arthroscope was then removed. The portals were closed with simple 3-0 nylon sutures. A sterile dressing was applied in addition to a sling. The patient was then awoken from general anesthesia and transferred to recovery room in good condition. Blood loss was estimated at 10 mL. No complications were incurred. Sponge and needle counts were correct in the case.
[2020-04-04 09:30] VITALS: TEMP 97
[2020-04-04 09:54] VITALS: RESP 16
[2020-04-04 10:44] VITALS: BP 116/61; PULSE 75
--- NOTE | 2020-04-04 10:51 | P.ANPRN ---
Procedure Note - Anesthesia - Nerve Block Performed Right Interscalene Single Time Out Performed: Yes ([id number]) Date of Procedure: 04/04/20 Procedure Start Time: 07:08 Procedure Stop Time: 07:13 Location of Patient: PreOp Indication: Acute Post-Operative Pain, Requested by Surgeon Specifically requested for management of pain by : Fracisco Garcia Sedation Type: Sedate with meaningful contact maintained Preparation: Sterile Prep Position: Supine Catheter: None Needle Gauge: 21 Ultrasound used to visualize needle placement: Yes Ultrasound used to observe medication spread: Yes Injectate: 0.5% Ropivacaine (see comment for volume) (30cc) Blood Aspirated: No Pain Paresthesia on Injection Noted: No Resistance on Injection: Normal Image Stored and Saved: Yes Events: Uneventful and Well Tolerated
== END 2020-04-04 11:34 | disposition home or self-care (01) ==
LOC: OR 06:18
PROVIDERS: ATTEND Orthopaedic Surgery
DX: S46.011A Strain of muscle(s) and tendon(s) of the rotator cuff of right shoulder, initial encounter (principal); J45.909 Unspecified asthma, uncomplicated; E07.9 Disorder of thyroid, unspecified; F32.9 Major depressive disorder, single episode, unspecified; K21.9 Gastro-esophageal reflux disease without esophagitis; Z88.1 Allergy status to other antibiotic agents; Z88.8 Allergy status to other drugs, medicaments and biological substances; Z79.1 Long term (current) use of non-steroidal anti-inflammatories (NSAID); Z79.899 Other long term (current) drug therapy; Z86.69 Personal history of other diseases of the nervous system and sense organs; Z90.710 Acquired absence of both cervix and uterus; X50.9XXA Other and unspecified overexertion or strenuous movements or postures, initial encounter; Y93.89 Activity, other specified; Y99.0 Civilian activity done for income or pay
CPT/HCPCS: 29827; 29826; 64415; 76942; C1713; C1894; J2250; J1100; J0690; J2405; J2001; J3010; J2795; J1885; J0330; J2704

== ENCOUNTER → 2021-07-06 | Outpatient (CLI) | payer OTHER ==
--- NOTE | 2021-07-06 14:32 | MR ---
EXAMINATION TYPE: MR knee RT wo con DATE OF EXAM: 07/06/2021 COMPARISON: MRI right knee November 10, 2017. HISTORY: Sprain of right knee TECHNIQUE: Multiplanar, multisequence imaging of the right knee is performed without IV contrast. FINDINGS: MEDIAL MENISCUS: New medial extrusion medial meniscus on coronal images increased signal posterior ho rn extending to central body more prominent from prior. LATERAL MENISCUS: Anterior and posterior horns are intact without tear. CRUCIATE LIGAMENTS: The anterior and posterior cruciate ligaments are intact and unremarkable. COLLATERAL LIGAMENTS: The medial collateral ligament and lateral collateral ligament complex are inta ct and unremarkable. EXTENSOR MECHANISM: Visualized quadriceps and patellar tendons are intact. EFFUSION: Stable small size suprapatellar joint effusion. POPLITEAL CYST: Stable tiny popliteal/go cyst axial image 15. TRICOMPARTMENT SPACES: Severe narrowing patellofemoral compartment with moderate to severe spurring r edemonstrated. Moderate narrowing and spurring medial and lateral tibiofemoral compartments again see n. CARTILAGE: Significant full thickness chondromalacia patella redemonstrated. Increasing cartilaginous loss medial tibiofemoral compartment noted. BONE MARROW SIGNAL: Areas of heterogeneous increased T2 signal along the posterior patellar pole rede monstrated and more prominent from prior. New areas of increased T2 signal medial tibial femoral comp artment noted at sites of increasing cartilaginous loss. OTHER: Varicose vessels in the soft tissue medially are improved from prior. IMPRESSION: 1. Worsening full-thickness tear of the medial meniscus involving posterior horn and central body. 2. Worsening moderate to severe patellofemoral and medial tibiofemoral compartment degenerative renner es as detailed above.
== END | disposition home or self-care (01) ==
LOC: RADMRIMAIN 12:11
PROVIDERS: ATTEND Emergency Medicine
DX: S83.241A Other tear of medial meniscus, current injury, right knee, initial encounter (principal); X58.XXXA Exposure to other specified factors, initial encounter

== ENCOUNTER → 2023-05-19 | Outpatient (CLI) | payer BC ==
[2023-05-19 16:11] LABS: HCT 40.8 % (37.2-46.3); HGB 13.6 g/dL (12.0-15.0); MCH 28.7 pg (27.0-32.0); MCHC 33.3 g/dL (32.0-37.0); MCV 86.1 FL (80.0-97.0); Mean Platelet Volume 10.1 FL (9.5-12.2); NRBC Per 100 WBC 0 X 10*3/uL (0.00-0.01); Platelet Count 228 X 10*3/uL (140-440); RBC 4.74 X 10*6/uL (4.10-5.20); WBC 4.94 X 10*3/uL (4.50-10.00)
[2023-05-19 16:29] LABS: ALT 24 U/L (8-44); AST 27 U/L (13-35); Albumin/Globulin Ratio 2.38 Ratio (1.60-3.17); Alkaline Phosphatase 70 U/L (41-126); BUN/Creat Ratio 16.33 Ratio (12.00-20.00); Blood Urea Nitrogen 14.7 mg/dL (9.0-27.0); Calcium 10.4 mg/dL (8.7-10.3); Carbon Dioxide 26.1 mmol/L (21.6-31.8); Chloride 101 mmol/L (96-109); Chol/HDL Ratio 2.28 Ratio; Globulin 2.1 g/dL (1.6-3.3); Glucose 86 mg/dL (70-110); Potassium 4.5 mmol/L (3.5-5.5); Sodium 139 mmol/L (135-145); T4, Free (Free Thyroxine) 1.59 ng/dL (0.80-1.80); Total Bilirubin 0.5 mg/dL (0.3-1.2); Total Protein 7.1 g/dL (6.2-8.2); VLDL Calculation 8.86 mg/dL (5.00-40.00)
--- NOTE | 2023-05-20 08:23 | MM ---
Reason for Exam: Screening (asymptomatic). Last mammogram was performed 1 year(s) and 6 month(s) ago. Patient History: Menarche at age 14. First Full-Term at age 23. Hysterectomy at age 44. Postmenopausal. Other cancer. Hormonal Contraceptives for 5 years until age 22. 03/02/2011, Bilateral Implants. Risk Values: Amelia 5 year model risk: 1.3%. NCI Lifetime model risk: 5.5%. Prior Study Comparison: 09/16/2016 Bilateral Screening Mammogram, [facility]. 05/09/2019 Bilateral Screening Mammogram, [facility]. 11/24/2021 Bilateral MG 3D scr devi unilateral w/cad, [facility]. Tissue Density: The breast tissue is almost entirely fat. Findings: Analyzed By CAD. Bilateral breast implants appear intact. There is no suspicious group of microcalcifications or new suspicious mass. Overall Assessment: Benign, BI-RAD 2 Management: Screening Mammogram of both breasts in [address] [facility] will attempt to contact patient to return for supplemental views and ultrasound if indicated. Patient should continue monthly self-breast exams. A clinical breast exam by your physician is recommended on an annual basis. This exam should not preclude additional follow-up of suspicious palpable abnormalities. Note on Amelia scores and lifetime risk: 1. A Amelia score greater than 3% is considered moderate risk. If this is the case, consider specialist referral to assess eligibility for a risk reducing agent. 2. If overall lifetime risk for the development of breast cancer is 20% or higher, the patient may qualify for future screening with alternating mammogram and breast MRI. Electronically signed and approved by: Abhi Fernandez DO
--- NOTE | 2023-05-23 12:43 | BD ---
EXAMINATION TYPE: Axial Bone Density DATE OF EXAM: 05/19/2023 CLINICAL HISTORY: 63 years old Female. ICD-10 CODE: M85.88 bone disorder Height: 70in Weight: 173lb FRAX RISK QUESTIONS: Family History (Parent hip fracture): yes Secondary Osteoporosis: 3. Menopause before 45: yes RISK FACTORS HISTORY OF: Family History of Osteoporosis: yes Active: yes Postmenopausal woman: yes MEDICATIONS: Additional Medications: vitamin d Additional History: EXAM MEASUREMENTS: Bone mineral densitometry was performed using the [employer] System. Bone mineral density as measured about the Lumbar spine is: ----- L1-L4(G/cm2): 1.067 T Score Values are as follows: ----- L1: -0.9 ----- L2: -0.9 ----- L3: -0.7 ----- L4: -1.4 ----- L1-L4: -0.9 Z Score Values are as follows: ----- L1: 0.1 ----- L2: 0.1 ----- L3: 0.3 ----- L4: -0.4 ----- L1-L4: 0.1 Bone mineral density has: Decreased -1.5% since study of: 05-09-2019 Bone mineral density about the R hip (g/cm2): 0.821 Bone mineral density about the L hip (g/cm2): 0.831 T Score values are as follows: -----R Neck: -1.2 -----L Neck: -1.2 -----R Total: -1.5 -----L Total: -1.4 Z Score values are as follows: -----R Neck: -0.1 -----L Neck: -0.1 -----R Total: -0.7 -----L Total: -0.6 Bone mineral density has: Decreased -1.2% since study of: 05-09-2019 FRAX%s: The graph provided illustrates a 16% chance for a major osteoporotic fx and a 0.7% chance for the hips probability for fx in 10 years time. IMPRESSION: Osteopenia (T Score between -2.5 and -1). There is slightly increased risk of fracture and the patient may be considered for treatment. Re-Screen 2-5 years. NOTE: T-SCORE=SD OF THE YOUNG ADULT MEAN.
== END | disposition home or self-care (01) ==
LOC: RADMAMWWP 06:57
PROVIDERS: ATTEND Obstetrics & Gynecology
DX: Z12.31 Encounter for screening mammogram for malignant neoplasm of breast (principal); Z13.220 Encounter for screening for lipoid disorders; Z13.29 Encounter for screening for other suspected endocrine disorder; M85.89 Other specified disorders of bone density and structure, multiple sites; R53.83 Other fatigue; Z78.0 Asymptomatic menopausal state; Z98.82 Breast implant status
CPT/HCPCS: 77063; 77067; 77080; 80053; 80061; 82533; 83036; 84439; 84443; 84479; 85027

== ENCOUNTER → 2023-07-29 | Outpatient (CLI) | payer OTHER ==
--- NOTE | 2023-07-29 15:52 | XR ---
EXAMINATION TYPE: XR shoulder complete 3 views RT DATE OF EXAM: 07/29/2023 Comparison: None Clinical History: 63-year-old female S46.911A STRAIN UNSP MUSC/FASC/TEND AT SHLDR/UP AR Findings: Mild degenerative change at the AC joint with some subarticular bony irregularity and large bowel spu rring. Subacromial space is preserved. No acute fracture, subluxation, dislocation. Impression: Mild AC joint OA. No acute osseous abnormality seen.
== END | disposition home or self-care (01) ==
LOC: RADXRMAIN 14:50
PROVIDERS: ATTEND Emergency Medicine
DX: S46.911A Strain of unspecified muscle, fascia and tendon at shoulder and upper arm level, right arm, initial encounter (principal); M19.011 Primary osteoarthritis, right shoulder

== ENCOUNTER → 2024-01-27 | Outpatient (CLI) | payer BC ==
[2024-01-27 12:17] LABS: INR 1.1 (<1.2); Partial Thromboplastin Time 29.1 sec (22.0-30.0); Prothrombin Time 11.5 sec (10.0-12.5)
[2024-01-27 15:34] LABS: HCT 39.9 % (37.2-46.3); HGB 13.2 g/dL (12.0-15.0); MCH 28.5 pg (27.0-32.0); MCHC 33.1 g/dL (32.0-37.0); MCV 86.2 FL (80.0-97.0); Mean Platelet Volume 10.4 FL (9.5-12.2); NRBC Per 100 WBC 0 X 10*3/uL (0.00-0.01); Platelet Count 248 X 10*3/uL (140-440); RBC 4.63 X 10*6/uL (4.10-5.20); WBC 4.92 X 10*3/uL (4.50-10.00)
[2024-01-27 17:35] LABS: ALT 24 U/L (8-44); AST 30 U/L (13-35); Albumin 4.6 g/dL (3.8-4.9); Albumin/Globulin Ratio 2.19 Ratio (1.60-3.17); Alkaline Phosphatase 75 U/L (41-126); BUN/Creat Ratio 17.38 Ratio (12.00-20.00); Blood Urea Nitrogen 13.9 mg/dL (9.0-27.0); Calcium 9.8 mg/dL (8.7-10.3); Carbon Dioxide 24.1 mmol/L (21.6-31.8); Chloride 98 mmol/L (96-109); Globulin 2.1 g/dL (1.6-3.3); Glucose 89 mg/dL (70-110); Potassium 4.6 mmol/L (3.5-5.5); Sodium 136 mmol/L (135-145); Total Bilirubin 0.5 mg/dL (0.3-1.2); Total Protein 6.7 g/dL (6.2-8.2)
[2024-01-28 02:56] LABS: Appearance,Urine Clear (Clear); Bilirubin,Urine Negative (Negative); Blood,Urine Negative (Negative); Color,Urine Yellow (Yellow); Ketones,Urine Negative (Negative); Nitrite,Urine Negative (Negative); PH, Urine 6.5; Specific Gravity,Urine 1.012 (1.001-1.030); Urobilinogen,Urine 0.2 E.U./DL
[2024-01-28 03:02] LABS: Bacteria,Urine None Seen (None Seen)
== END | disposition home or self-care (01) ==
LOC: LABWHC1 10:13
PROVIDERS: ATTEND Orthopaedic Surgery
DX: M17.11 Unilateral primary osteoarthritis, right knee
CPT/HCPCS: 36415; 80053; 81001; 83036; 85027; 85610; 85730; 87070; 87086; 93005